=== PATIENT | male | born 1955 | race African-American/Black ===

== ENCOUNTER 2016-12-13 08:13 | Day surgery (SDC) | payer OTHER ==
[~2016-12-13] VITALS: Ht 190.5 cm; Wt 130.2 kg
[~2016-12-13 08:13] MED LIST: ASCORBIC ACID500 M3 PO; B-121000 MC1 SL; CALCIUM 600 +1 EAC1 PO; CENTRUM SILVER1 EAC3 PO; COLCRYS0.6 MG PO; DILAUDID4 MG PO; FLEXERIL10 MG PO; FOLIC ACID1 MG PO; HUMALOG100 UNIT/1 SC; LANTUS 10100 UNITS/ SC; LANTUS 3 M100 UNITS1 SC; LIDOCAINE700 MG TD; LOPRESSOR50 MG PO; MAGNESIUM250 MG PO; NEXIUM40 MG PO; NOVOLOG PE100 UNITS/ SC; OXYCODONE HCL5 MG PO; OXYCONTIN10 MG PO; OXYCONTIN20 MG PO; PERCOCET 5/31 TABLET PO; PREDNISONE10 MG PO; PRILOSEC20 MG PO; PROGRAF1 MG PO; RAPAMUNE1 MG PO; SENNA-TIME S T1 EACH PO; TRAMADOL HCL50 MG PO; XARELTO10 MG PO; ZOLOFT50 MG PO
[2016-12-13 09:47] LABS: POINT-OF-CARE METER ID UU13113694
== END 2016-12-13 10:10 | disposition home or self-care (01) ==
LOC: PAIN 08:13 → SDC 08:45 → PAIN 08:45
PROVIDERS: Anesthesiology Pain Medicine
DX: M50.123 Cervical disc disorder at C6-C7 level with radiculopathy (principal); M51.36 Other intervertebral disc degeneration, lumbar region; E11.49 Type 2 diabetes mellitus with other diabetic neurological complication; F41.9 Anxiety disorder, unspecified; B18.2 Chronic viral hepatitis C; K21.9 Gastro-esophageal reflux disease without esophagitis; E66.1 Drug-induced obesity; Z68.35 Body mass index [BMI] 35.0-35.9, adult; I10 Essential (primary) hypertension; G47.30 Sleep apnea, unspecified; Z86.73 Personal history of transient ischemic attack (TIA), and cerebral infarction without residual deficits; Z79.82 Long term (current) use of aspirin; Z87.891 Personal history of nicotine dependence; Z82.49 Family history of ischemic heart disease and other diseases of the circulatory system; Z79.4 Long term (current) use of insulin; Z81.1 Family history of alcohol abuse and dependence; Z79.84 Long term (current) use of oral hypoglycemic drugs; Z79.891 Long term (current) use of opiate analgesic
CPT/HCPCS: 82948; J1030; J1885; J2250; J3010

== ENCOUNTER 2017-04-04 17:41 | Observation (INO) | payer OTHER ==
[~2017-04-04] VITALS: Ht 182.9 cm; Wt 149.1 kg
[~2017-04-04 17:41] MED LIST changes: +LIPITOR40 MG PO; +LITE COAT ASPI325 M1 PO; +LYRICA200 MG PO; +ZESTRIL2.5 MG PO
[2017-04-04 18:11] LABS: MCH 22.9 PG (29.0-34.0); MCHC 29.8 G/DL (30.0-36.0); MCV 77.1 FL (86-99); MEAN PLAT.VOLUME 10.8 uM^3 (9.0-12.4); PLATELET COUNT 123 K/uL (156-360); RBC DIS.WIDTH-SD 45.4 % (39-53); RED BLOOD COUNT 5.58 M/uL (4.00-5.50); WHITE BLOOD COUNT 5.2 K/uL (4.1-10.2)
[2017-04-04 18:20] LABS: CHLORIDE 103 mEq/L (99-109); POTASSIUM 4.4 mEq/L (3.7-5.4); SODIUM 138 mEq/L (136-147)
[2017-04-04 18:21] LABS: GLUCOSE 116 mg/dL (70-99)
[2017-04-04 18:23] LABS: ANION GAP 12 MEQ/L (2-14)
[2017-04-04 18:25] LABS: GFR ESTIMATE (CALCULATED) > 59 mL/min/ (58.99-99999)
[2017-04-04 18:26] LABS: UREA NITROGEN (BUN) 11 mg/dL (9-23)
[2017-04-04 18:32] LABS: TROP-I INTERPRETATION NEGATIVE; TROPONIN-I < 0.01 ng/mL (0.0-0.30)
[2017-04-04] MEDS ORDERED: LANTUS 3 M100 UNITS1 SC (20:06)
[2017-04-04] MEDS ORDERED: OXYCODONE-APAP1 EACH PO (20:07)
[2017-04-04 21:26] LABS: TROP-I INTERPRETATION NEGATIVE; TROPONIN-I < 0.01 ng/mL (0.0-0.30)
[2017-04-04 22:14] VITALS: BP 119/67
[2017-04-05 01:06] LABS: TROP-I INTERPRETATION NEGATIVE; TROPONIN-I < 0.01 ng/mL (0.0-0.30)
[2017-04-05 04:19] VITALS: BP 127/61
[2017-04-05 05:37] LABS: INTER. NORMALIZED RATIO 1.2; PROTHROMBIN TIME 13.8 SEC (10.2-12.9)
[2017-04-05 05:54] LABS: TROP-I INTERPRETATION NEGATIVE; TROPONIN-I < 0.01 ng/mL (0.0-0.30)
[2017-04-05 06:05] LABS: ANION GAP 8 MEQ/L (2-14); CHLORIDE 103 MEQ/L (99-109); POTASSIUM 4.6 MEQ/L (3.7-5.4); SAMPLE HEMOLYSIS CHECK 0; SAMPLE ICTERIC CHECK 0; SAMPLE LIPEMIA CHECK 0; SODIUM 136 MEQ/L (136-147)
[2017-04-05 06:11] LABS: GFR ESTIMATE (CALCULATED) > 59 mL/min/ (58.99-99999); UREA NITROGEN (BUN) 16 mg/dL (9-23)
[2017-04-05 06:12] LABS: GLUCOSE 212 mg/dL (70-99)
[2017-04-05 07:18] VITALS: BP 129/64
[2017-04-05 08:39] LABS: POINT-OF-CARE METER ID UU13113700
[2017-04-05] MEDS ORDERED: CEPHALEXIN500 MG PO (10:32)
[2017-04-05] MEDS ORDERED: PERCOCET 5/31 TABLET PO (10:37)
[2017-04-05 12:14] VITALS: BP 140/68
== END 2017-04-05 12:26 | disposition home or self-care (01) ==
LOC: EME 17:41 → EDOF 19:36 → 5WEST 19:36 → EDOF 19:36 → ENRESERV 19:44 → 5WEST 22:16
PROVIDERS: Hospitalist; Nurse Practitioner Family; Physician Assistant Medical
DX: R07.9 Chest pain, unspecified (principal); B34.9 Viral infection, unspecified; L03.317 Cellulitis of buttock; E11.9 Type 2 diabetes mellitus without complications; I10 Essential (primary) hypertension; D64.9 Anemia, unspecified; F32.9 Major depressive disorder, single episode, unspecified; Z94.4 Liver transplant status; Z92.25 Personal history of immunosuppression therapy; Z86.19 Personal history of other infectious and parasitic diseases; G89.29 Other chronic pain; M54.9 Dorsalgia, unspecified; Z98.1 Arthrodesis status; Z87.891 Personal history of nicotine dependence; Z79.4 Long term (current) use of insulin; Z79.82 Long term (current) use of aspirin
CPT/HCPCS: 71020; 80048; 82948; 84484; 85027; 85379; 85610; 87502; 93005; 99281; 99285; G0378; J1650; J1815; J2270; J7520

== ENCOUNTER 2017-12-09 18:25 | Emergency (ER) | payer OTHER ==
[~2017-12-09] VITALS: Ht 193 cm; Wt 152.3 kg
[~2017-12-09 18:25] MED LIST changes: +CEPHALEXIN500 MG PO; +OXYCODONE-APAP1 EACH PO
[2017-12-09 20:28] VITALS: BP 157/82
== END 2017-12-09 20:29 | disposition home or self-care (01) ==
LOC: EME 18:25
PROC: 0JQJ0ZZ Repair Right Hand Subcutaneous Tissue and Fascia, Open Approach (ICD-10-PCS; principal; 2017-12-09)
DX: S61.212A Laceration without foreign body of right middle finger without damage to nail, initial encounter (principal); Y93.G1 Activity, food preparation and clean up; Z91.018 Allergy to other foods
CPT/HCPCS: 99281; 99283